=== PATIENT | female | born 1985 | race Caucasian/White ===

== ENCOUNTER 2022-08-22 16:09 | Inpatient (IN) | payer MEDICAID ==
[~2022-08-22] VITALS: Ht 165.1 cm; Wt 101.0 kg
[2022-08-22 17:10] LABS: BASOPHILS % (AUTO) 0.5 % (0-1); EOSINOPHILS # (AUTO) 0.4 X10'3 (0-0.9); EOSINOPHILS % (AUTO) 4.9 % (0-6); HEMATOCRIT 38.1 % (35.0-45.0); HEMOGLOBIN 12.5 g/dl (12.0-16.0); LYMPHOCYTES % (AUTO) 24.4 % (21-51); MEAN CORPUSCULAR HEMOGLOBIN 25.4 PG (27.0-31.0); MEAN CORPUSCULAR HGB CONC 32.7 g/dL (33.0-36.5); MEAN CORPUSCULAR VOLUME 77.6 FL (78-98); MEAN PLATELET VOLUME 7.4 FL (7.4-10.4); MONOCYTES # (AUTO) 0.5 X10'3 (0-0.9); MONOCYTES % (AUTO) 6.3 % (2-12); NEUTROPHILS # (AUTO) 5.2 X10'3 (1.8-7.7); NEUTROPHILS % (AUTO) 63.9 % (42-75); PLATELET COUNT 213 X10'3 (140-440); RED BLOOD COUNT 4.91 X10'6 (4.20-5.60); RED CELL DISTRIBUTION WIDTH 16.2 % (11.5-14.5); WHITE BLOOD COUNT 8.2 X10'3 (4.5-11.0)
[2022-08-22 17:17] LABS: ALANINE AMINOTRANSFERASE 30 U/L (12-78); ALBUMIN 3.9 G/DL (3.4-5.0); ALBUMIN/GLOBULIN RATIO 1.2 (1.1-1.5); ALKALINE PHOSPHATASE 74 IU/L (46-116); ANION GAP 8 (8-16); ASPARTATE AMINO TRANSFERASE 20 U/L (10-37); BILIRUBIN,TOTAL 0.4 MG/DL (0.1-1.0); BLOOD UREA NITROGEN 8 MG/DL (7-18); BUN/CREATININE RATIO 11.6 (6.6-38.0); CALCIUM 8.7 MG/DL (8.5-10.1); CHLORIDE 104 MMOL/L (99-107); CREATININE 0.69 MG/DL (0.40-0.90); GLUCOSE 96 MG/DL (70-104); LIPASE 66 U/L (73-393); POTASSIUM 4.2 MMOL/L (3.5-5.1); SODIUM 136 MMOL/L (135-145); TOTAL CARBON DIOXIDE 24.5 MMOL/L (24-32); TOTAL PROTEIN 7.2 G/DL (6.4-8.2); eGFR > 90 ML/MIN
[2022-08-22] MEDS ORDERED: ondansetron/PF 4mg/2ml inj IV ONE (17:20)
[2022-08-22] MEDS ORDERED: normal saline 1000ML IV soln IVB ONE (17:20)
[2022-08-22] MEDS ORDERED: morphine 4 MG/ML inj SYRINge IV PRN (17:20)
[2022-08-22 17:29] LABS: CLARITY,URINE SLIGHTLY CLOUDY (Clear); COLOR,URINE YELLOW (Yellow); GLUCOSE, URINE NEGATIVE (Neg); KETONES,URINE TRACE mg/dl (Neg); LEUKOCYTE ESTERASE ,URINE NEGATIVE (Neg); NITRITES, URINE NEGATIVE (Neg); OCCULT BLOOD,URINE NEGATIVE (Neg); PROTEIN,URINE NEGATIVE (Neg); URINE HCG NEGATIVE (NEG); UROBILINOGEN,URINE 0.2 E.U/dL (0.2-1.0)
[2022-08-22] MEDS ORDERED: ketorolac trometh. 30mg/ml inj. IV ONE (17:30)
[2022-08-22] MEDS ORDERED: CefTRIAXone 2gm/D5W 50ml BAG 50 ML IV ONE (17:35)
[2022-08-22] MEDS ORDERED: metoclopramide 5 mg/ml inj IV PRN (17:40)
[2022-08-22] MEDS ORDERED: mag hydrox/Alum hydrox/simeth 30ml oral suspension PO PRN (17:40)
[2022-08-22] MEDS ORDERED: magnesium hydroxide 30ml (MOM) UD suspension PO PRN (17:40)
[2022-08-22] MEDS ORDERED: ondansetron 4mg rapidly disintigrating tab PO PRN (17:40)
[2022-08-22] MEDS ORDERED: HYDROmorphone inj. 0.5 MG/0.5 ML DISP.SYRIN IV PRN (17:40)
[2022-08-22] MEDS ORDERED: potassium Cl 20 mEq SR tablet PO PRN ×2 (17:40)
[2022-08-22] MEDS ORDERED: potassium Cl 40MEQ/1/2NS 520ml 520 ML IV PRN (17:40)
[2022-08-22] MEDS ORDERED: HYDROmorphone/PF 0.2 MG/ML SYRINGE IV PRN (17:40)
[2022-08-22] MEDS ORDERED: HYDROcodone/acetaminophen 5mg/325mg tablet PO PRN (17:40)
[2022-08-22] MEDS ORDERED: acetaminophen 325mg tablet PO PRN (17:40)
[2022-08-22] MEDS ORDERED: magnesium 4gm in 100ml NS 100 ML IV PRN (17:40)
[2022-08-22] MEDS ORDERED: magnesium Cl slow-release 64mg tablet PO PRN (17:40)
[2022-08-22] MEDS: normal saline 1000ml 1,000 ML IV SCH (17:40)
[2022-08-22 18:00] LABS: UA COLLECTION TYPE CLN CATCH MIDSTREAM
[2022-08-22 18:02] LABS: WBC,URINE 0-4 /HPF (0-4)
[2022-08-22 18:03] LABS: BACTERIA,URINE 4+ /HPF (Neg); RBC,URINE NONE SEEN /HPF (0-2); SQUAMOUS EPITHELIAL CELL,UR MANY /LPF (FEW)
--- NOTE | 2022-08-22 18:06 | NUR ---
PAGER ID: [phone] MESSAGE: Charles COTTER IN ER 16, DO YOU WANT BLOOD CULTURES BEFORE ABX? GRACE
[2022-08-22 18:18] LABS: MUCUS STRANDS MODERATE /LPF (Neg)
[2022-08-22] MEDS ORDERED: FLUO-81 PO (18:59)
[2022-08-22] MEDS ORDERED: FLUT250D PO (18:59)
[2022-08-22] MEDS ORDERED: ALBU17AE26 PO (18:59)
[2022-08-22] MEDS ORDERED: MONT-40 PO (18:59)
[2022-08-22] MEDS ORDERED: OMEP40CA21 PO (18:59)
[2022-08-22] MEDS ORDERED: KEN0.1O TOP (18:59)
[2022-08-22] MEDS: K and/or MAG REPLACEMENT MC SCH (19:14)
[2022-08-22] MEDS: docusate sod 100mg capsule PO SCH (20:00)
[2022-08-22] MEDS ORDERED: temazepam 15mg capsule PO PRN (21:00)
[2022-08-22] MEDS: ondansetron/PF 4mg/2ml inj IV PRN (23:42)
[2022-08-23] VITALS (20 sets, daily range): BP systolic 107–142; BP diastolic 52–88
[2022-08-23] MEDS: normal saline 1000ml 1,000 ML IV SCH ×2 (04:07→14:34)
[2022-08-23] MEDS: CefTRIAXone/D5W-Rocephin 1gm 50 ML IV SCH (07:32)
[2022-08-23] MEDS: acetaminophen 325mg tablet PO PRN (07:37)
--- NOTE | 2022-08-23 07:49 | NUR ---
Patient in room [facility]. I have received report from Elsa giang and had the opportunity to ask questions and assume patient care.
[2022-08-23] MEDS: docusate sod 100mg capsule PO SCH ×2 (08:00→21:10)
[2022-08-23] MEDS: K and/or MAG REPLACEMENT MC SCH ×2 (08:00→21:02)
[2022-08-23 08:27] LABS: BASOPHILS % (AUTO) 0.7 % (0-1); EOSINOPHILS # (AUTO) 0.4 X10'3 (0-0.9); EOSINOPHILS % (AUTO) 6.9 % (0-6); HEMATOCRIT 34.9 % (35.0-45.0); HEMOGLOBIN 11.5 g/dl (12.0-16.0); LYMPHOCYTES # (AUTO) 2.2 X10'3 (1.1-4.8); LYMPHOCYTES % (AUTO) 35.6 % (21-51); MEAN CORPUSCULAR HEMOGLOBIN 25.3 PG (27.0-31.0); MEAN CORPUSCULAR HGB CONC 32.9 g/dL (33.0-36.5); MEAN CORPUSCULAR VOLUME 77.1 FL (78-98); MEAN PLATELET VOLUME 7.5 FL (7.4-10.4); MONOCYTES # (AUTO) 0.4 X10'3 (0-0.9); MONOCYTES % (AUTO) 6.3 % (2-12); NEUTROPHILS # (AUTO) 3.1 X10'3 (1.8-7.7); NEUTROPHILS % (AUTO) 50.5 % (42-75); PLATELET COUNT 188 X10'3 (140-440); RED BLOOD COUNT 4.53 X10'6 (4.20-5.60); WHITE BLOOD COUNT 6.1 X10'3 (4.5-11.0)
[2022-08-23 08:51] LABS: ALBUMIN 3.3 G/DL (3.4-5.0); ALBUMIN/GLOBULIN RATIO 1.1 (1.1-1.5); ANION GAP 7 (8-16); ASPARTATE AMINO TRANSFERASE 15 U/L (10-37); BILIRUBIN,TOTAL 0.3 MG/DL (0.1-1.0); BLOOD UREA NITROGEN 10 MG/DL (7-18); BUN/CREATININE RATIO 15.4 (6.6-38.0); CALCIUM 7.8 MG/DL (8.5-10.1); CHLORIDE 107 MMOL/L (99-107); CREATININE 0.65 MG/DL (0.40-0.90); GLUCOSE 85 MG/DL (70-104); POTASSIUM 3.6 MMOL/L (3.5-5.1); SODIUM 138 MMOL/L (135-145); TOTAL CARBON DIOXIDE 23.8 MMOL/L (24-32); TOTAL PROTEIN 6.4 G/DL (6.4-8.2); eGFR > 90 ML/MIN
[2022-08-23 08:52] LABS: ALANINE AMINOTRANSFERASE 25 U/L (12-78); ALKALINE PHOSPHATASE 70 IU/L (46-116)
--- NOTE | 2022-08-23 12:05 | NUR ---
PATIENT SHOWERED,c/o pain medicated for pain x1, will continue to monitor
[2022-08-23] MEDS ORDERED: INDOCYANINE GREEN 25 MG/10 ML VIAL IV ONE (14:05)
--- NOTE | 2022-08-23 16:05 | NUR ---
Report given to gericare aide teacher Danielle. BS 62 pre-op check list completed.
[2022-08-23] MEDS ORDERED: LIDOcaine 1% 30ml preserv. free vial ONE (17:00)
[2022-08-23] MEDS ORDERED: BUPIVAcaine 0.5% inj/PF 30 ML ONE (17:00)
[2022-08-23] MEDS: ondansetron/PF 4mg/2ml inj IV PRN (17:03)
[2022-08-23] MEDS ORDERED: ringers solution, lacted 1,000 ML IV SCH (17:10)
[2022-08-23] MEDS ORDERED: meperidine/PF 25mg/ml syringe IV PRN ×3 (17:10)
[2022-08-23] MEDS ORDERED: ondansetron/PF 4mg/2ml inj IV PRN (17:10)
[2022-08-23] MEDS ORDERED: morphine 2 MG/ML inj. syringe IV PRN (17:10)
[2022-08-23] MEDS ORDERED: proCHLORperazine 10 MG/2 ml inj IV PRN (17:10)
[2022-08-23] MEDS ORDERED: morphine 4 MG/ML inj SYRINge IV PRN (17:10)
[2022-08-23] MEDS ORDERED: sevoflurane 250ml liquid IH ONE (17:11)
[2022-08-23] MEDS ORDERED: fentaNYL/PF 50MCG/1 ML 2ML syringe ONE (17:17)
[2022-08-23] MEDS ORDERED: midazolam 1 mg/ML 2ml injection ONE (17:17)
[2022-08-23] MEDS ORDERED: ceFAZolin 1000mg inj ONE (17:24)
[2022-08-23] MEDS ORDERED: BUPIVAcaine 0.5% inj/PF 30 ml vial IJ ONE (17:52)
[2022-08-23] MEDS ORDERED: propofol inj 20 ML IV ONE (18:04)
[2022-08-23] MEDS ORDERED: LIDOcaine 1%/PF 5ML 10 MG/ML VIAL ONE (18:04)
[2022-08-23] MEDS ORDERED: dexamethasone sod phosphate 4mg/ml inj. ONE (18:05)
[2022-08-23] MEDS ORDERED: ondansetron/PF 4mg/2ml inj ONE (18:05)
[2022-08-23] MEDS ORDERED: glycopyrrolate 0.2mg/ml inj ONE (18:05)
[2022-08-23] MEDS ORDERED: neostigmine methylsulfate 1 MG/ML 10ml vial ONE (18:05)
[2022-08-23] MEDS ORDERED: rocuronium 10mg/ml inj IV ONE (18:05)
[2022-08-23] MEDS ORDERED: meperidine/PF 25mg/ml syringe ONE (18:24)
--- NOTE | 2022-08-23 18:24 | NUR ---
Patient still in surgery, report given to Jillian AGRAWAL
--- NOTE | 2022-08-23 18:25 | NUR ---
Patient in room [facility]. I have received report from TANJA Chandler and had the opportunity to ask questions and assume patient care.
[2022-08-23] MEDS ORDERED: ipratropium/albuterol 3ml nebule NEB PRN (18:40)
[2022-08-23] MEDS ORDERED: naloxone 0.4 mg/ml inj IV PRN (19:00)
[2022-08-23] MEDS ORDERED: HYDROcodone/acetaminophen 10/325mg tab PO PRN (19:00)
[2022-08-23] MEDS ORDERED: HYDROcodone/acetaminophen 5mg/325mg tablet PO PRN (19:00)
--- NOTE | 2022-08-23 19:45 | NUR ---
Patient in room [facility]. I have received report from TANJA Gonzalez and had the opportunity to ask questions and assume patient care.
--- NOTE | 2022-08-23 19:50 | NUR ---
REPORT GIVEN AND ALL QUESTIONS ANSWERED. PATIENT TRANSFERRED TO SURG.NO BELONGINGS EXCEPT GLASSES PRESENT AND DELIVERED TO ROOM. RN PRESENT ALL CRITERIA FOR TRANSFER BACK TO THE FLOOR HAS BEEN ACHIEVED. VSS. PAIN AT A TOLERABLE LEVEL. BED LOW, CALL LIGHT PRESENT AND 2 RAILS DOWN. RN AWARE THAT PATIENT HAS ARRIVED. TO ACCEPT CARE OF PATIENT. PT WEARING GLASSES. Addendum: 08/23/22 at 1956 by Carlos Soto RN, RN Amended: Links added.
--- NOTE | 2022-08-23 19:55 | NUR ---
pt arrived from surgery, in bed. settled in reoriented to room.
[2022-08-24] MEDS: HYDROcodone/acetaminophen 10/325mg tab PO PRN ×3 (01:25→17:51)
[2022-08-24 02:00] VITALS: BP 105/53
[2022-08-24] MEDS: normal saline 1000ml 1,000 ML IV SCH ×2 (05:21→09:40)
[2022-08-24 06:00] VITALS: BP 124/63
--- NOTE | 2022-08-24 06:33 | NUR ---
Problems reprioritized. Patient report given, questions answered & plan of care reviewed with TANJA Wolf.
--- NOTE | 2022-08-24 07:00 | NUR ---
Patient in room [facility]. I have received report from taj giang and had the opportunity to ask questions and assume patient care.
[2022-08-24] MEDS: CefTRIAXone/D5W-Rocephin 1gm 50 ML IV SCH (07:16)
[2022-08-24] MEDS: docusate sod 100mg capsule PO SCH (07:16)
[2022-08-24 07:24] LABS: BASOPHILS % (AUTO) 0.1 % (0-1); EOSINOPHILS % (AUTO) 0.6 % (0-6); HEMOGLOBIN 11.6 g/dl (12.0-16.0); LYMPHOCYTES # (AUTO) 1.3 X10'3 (1.1-4.8); LYMPHOCYTES % (AUTO) 19.1 % (21-51); MEAN CORPUSCULAR HEMOGLOBIN 25.3 PG (27.0-31.0); MEAN CORPUSCULAR VOLUME 76.6 FL (78-98); MEAN PLATELET VOLUME 7.8 FL (7.4-10.4); MONOCYTES # (AUTO) 0.4 X10'3 (0-0.9); MONOCYTES % (AUTO) 5.3 % (2-12); NEUTROPHILS # (AUTO) 5.3 X10'3 (1.8-7.7); NEUTROPHILS % (AUTO) 74.9 % (42-75); PLATELET COUNT 177 X10'3 (140-440); RED BLOOD COUNT 4.57 X10'6 (4.20-5.60); RED CELL DISTRIBUTION WIDTH 15.4 % (11.5-14.5)
[2022-08-24 07:40] LABS: ALANINE AMINOTRANSFERASE 48 U/L (12-78); ALBUMIN 3.2 G/DL (3.4-5.0); ALKALINE PHOSPHATASE 69 IU/L (46-116); ANION GAP 6 (8-16); ASPARTATE AMINO TRANSFERASE 53 U/L (10-37); BILIRUBIN,TOTAL 0.3 MG/DL (0.1-1.0); BLOOD UREA NITROGEN 7 MG/DL (7-18); BUN/CREATININE RATIO 10.6 (6.6-38.0); CALCIUM 7.8 MG/DL (8.5-10.1); CHLORIDE 106 MMOL/L (99-107); CREATININE 0.66 MG/DL (0.40-0.90); GLUCOSE 85 MG/DL (70-104); POTASSIUM 3.8 MMOL/L (3.5-5.1); SODIUM 135 MMOL/L (135-145); TOTAL CARBON DIOXIDE 23.4 MMOL/L (24-32); TOTAL PROTEIN 6.4 G/DL (6.4-8.2); eGFR > 90 ML/MIN
[2022-08-24] MEDS: K and/or MAG REPLACEMENT MC SCH (08:00)
[2022-08-24 10:00] VITALS: BP 103/59
--- NOTE | 2022-08-24 14:01 | NUR ---
ELECTRICAL LABORATORY TECHNICIAN documentation: I have reviewed and agree with all interventions, assessments performed and documented by GIANNI LE.
[2022-08-24] MEDS ORDERED: HYDR-3964 PO (15:12)
[2022-08-24] MEDS: acetaminophen 325mg tablet PO PRN (15:25)
--- NOTE | 2022-08-24 18:25 | NUR ---
PT STABLE FOR DC, IV DC, ALL DISCHARGE INFO GONE OVER, ALL BELONGINGS AND MEDS TAKEN. PT WAS WALKED DOWN TO THE LOBBY BY THE TICKET MARKER AND LEFT IN A PRIVATE VEHICLE WITH MOM.
== END 2022-08-24 18:19 | disposition home or self-care (01) | DRG 263 ==
LOC: ER 16:11 → ED HOLD 17:42 → SUR 3N 08-23 07:32 → UNDODISIN 08-24 15:43
PROVIDERS: ADMIT Family Medicine; ATTEND Family Medicine
PROC: BF121ZZ Fluoroscopy of Gallbladder using Low Osmolar Contrast (ICD-10-PCS; 2022-08-23)
PROC: 8E0W4CZ Robotic Assisted Procedure of Trunk Region, Percutaneous Endoscopic Approach (ICD-10-PCS; 2022-08-23)
PROC: 0FT44ZZ Resection of Gallbladder, Percutaneous Endoscopic Approach (ICD-10-PCS; principal; 2022-08-23 17:11)
DX: K80.63 Calculus of gallbladder and bile duct with acute cholecystitis with obstruction (principal); F41.1 Generalized anxiety disorder; J45.909 Unspecified asthma, uncomplicated; Z79.899 Other long term (current) drug therapy
CPT/HCPCS: 36415; 71045; 74176; 76700; 80053; 81001; 81025; 82948; 83605; 83690; 83735; 85025; 85610; 86885; 86900; 86901; 87040; 87081; 93005; 94640; 94760; 96365; 99285; A4215; A4615; A4618; A6258; A7000; G0378; J0690; J0696; J1100; J1170; J1885; J2175; J2250; J2270; J2405; J2704; J2710; J3010; J3490; J7030; J7120; S0020